=== PATIENT | male | born 1990 | race African-American/Black ===

== ENCOUNTER 2017-03-02 02:36 | Emergency (ER) | payer SELFPAY ==
[~2017-03-02] VITALS: Ht 175.3 cm; Wt 86.2 kg
[2017-03-02 02:36] VITALS: BP_SYST 144
--- NOTE | 2017-03-02 02:36 | NUR ---
Patient to ER bed 1 to gown for evaluation. Side rails up. Report given to JOSE COPE.
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
--- NOTE | 2017-03-02 02:37 | NUR ---
ED MD Mario at bedside for medical evaluation.
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
--- NOTE | 2017-03-02 02:49 | NUR ---
Spoke w/ Tabitha at [employer]. She will be sending an officer out to evaluate patient
[2017-03-02] MEDS ORDERED: NACL 0.9% 1,000 ML IV ONE ×2 (03:00→03:30)
[2017-03-02] MEDS ORDERED: MORPHINE 4 MG/ML INJ. SYRINGE IVP ONE ×2 (03:00→05:00)
--- NOTE | 2017-03-02 03:00 | NUR ---
[place] [employer] on unit. At bedside with patient.
[2017-03-02 03:33] LABS: BASOPHILS # (AUTO) 0.1 K/uL (0.0-0.2); EOSINOPHILS # (AUTO) 0.1 K/uL (0.0-0.4); LYMPHOCYTES # (AUTO) 2.4 K/uL (1.0-5.5)
[2017-03-02 03:38] LABS: BASOPHILS % (AUTO) 1.3 % (0.0-2.0); EOSINOPHILS % (AUTO) 1.9 % (0.0-4.0); HEMATOCRIT 42.5 % (36-54); LYMPHOCYTES % (AUTO) 33.9 % (20.5-51.5); MEAN CORPUSCULAR HEMOGLOBIN 30 pg (27-31); MEAN CORPUSCULAR HGB CONC 33 % (32-36); MEAN CORPUSCULAR VOLUME 89 fL (79.0-98.0); MONOCYTES # (AUTO) 0.5 K/uL (0.0-1.0); MONOCYTES % (AUTO) 7.8 % (1.7-9.3); NEUTROPHILS # (AUTO) 3.9 K/uL (1.8-7.7); NEUTROPHILS % (AUTO) 55.1 % (40.0-70.0); PLATELET COUNT (AUTO) 179 K/uL (130-430); RED BLOOD CELL COUNT(AUTO) 4.76 MIL/uL (4.2-6.2); RED CELL DISTRIBUTION WIDTH 12.8 % (9.0-15.0)
[2017-03-02 03:43] LABS: CALCIUM 8.4 mg/dL (8.4-11.0); CREATININE 0.89 mg/dL (0.55-1.30)
[2017-03-02 03:44] LABS: POTASSIUM 4.4 mmol/L (3.5-5.1)
[2017-03-02 03:49] LABS: PROTHROMBIN TIME 10.6 SECS (9.5-12.5)
[2017-03-02 04:03] LABS: ALBUMIN 3.9 g/dL (3.4-4.8); TOTAL BILIRUBIN 0.4 mg/dL (0.0-1.0); TOTAL PROTEIN, SERUM 6.9 g/dL (6.4-8.3)
[2017-03-02] MEDS ORDERED: DIPH-TET-PERTUS Vaccine 0.5 ML VIAL (ADACEL) I.M. ONE (04:15)
--- NOTE | 2017-03-02 04:30 | NUR ---
Chandra cross in [facility] - 03/02/17 at 2334 by [email or web address] Patient stable. Vital signs within normal limits. Will continue to monitor.
--- NOTE | 2017-03-02 04:30 | NUR ---
Patient stable. Vital signs within normal limits. A/O but still uncooperative to questioning. Resting comfortably in bed. Will continue to monitor.
[2017-03-02 04:45] VITALS: BP_SYST 138
--- NOTE | 2017-03-02 04:45 | NUR ---
Patient to be transferred to [facility]. Is being transferred due to a need for higher level of care. Receiving facility has accepting physician and available space. ER physician has signed transfer form. Patient or responsible democrat has agreed to transfer and signed form. Patient belongings inventoried and will be sent with patient. Copy of nursing notes, lab reports, EKG, Physicians Orders and X-rays to be sent with patient. Report called to Christine GARCIA at receiving facility. [facility] ambulance service has been called for transfer. [facility] at facility ready for transport.
== END 2017-03-02 04:45 | disposition short-term general hospital (02) ==
LOC: SED 02:36
DX: S01.80XA Unspecified open wound of other part of head, initial encounter (principal); R51 Headache; W33.01XA Accidental discharge of shotgun, initial encounter; Y93.89 Activity, other specified; Y92.89 Other specified places as the place of occurrence of the external cause; Y99.8 Other external cause status
CPT/HCPCS: 36415; 70450; 70486; 80053; 85025; 85610; 85730; 86886; 86900; 86901; 90471; 90715; 96361; 96374; 96376; 99285; J2270; J7030